=== PATIENT | female | born 1950 | race Caucasian/White ===

== ENCOUNTER 2020-01-01 10:45 | Outpatient (CLI) | payer MEDICARE, OTHER, SELFPAY ==
--- NOTE | ~2020-01-01 | MM_ITS ---
EXAMINATION: MM screening [facility] w june HISTORY: Screening. Left breast cancer. Status post previous chemotherapy and radiation therapy. TECHNIQUE: Craniocaudal and mediolateral oblique 3-D tomosynthesis images were obtained and synthetic 2-D images were generated. CAD analysis was submitted and interpreted. COMPARISON: Comparison to multiple prior studies sequentially, with oldest reviewed study dated 09/2014. BREAST PARENCHYMAL COMPOSITION: The breasts are heterogeneously dense, which may obscure small masses . FINDINGS: Stable architectural distortion of the left breast consistent with previous site of radiati on therapy. There is no evidence of suspicious mass, calcification, or architectural distortion to ramirez ggest malignancy in either breast. There has been no suspicious interval change. IMPRESSION: 1. No mammographic evidence of malignancy. 2. Recommend routine screening mammography in one year. BI-RADS Category 2: Benign finding(s). Reviewed, dictated and finalized at location A.
== END 2020-01-01 10:46 | disposition home or self-care (01) ==
LOC: ANHIMG 10:49
PROVIDERS: PCP Internal Medicine; Visit Provider Obstetrics & Gynecology
DX: Z12.31 Encounter for screening mammogram for malignant neoplasm of breast (principal)
CPT/HCPCS: 77063; 77067

== ENCOUNTER 2021-01-11 16:15 | Outpatient (CLI) | payer MEDICARE, SELFPAY ==
--- NOTE | ~2021-01-11 | DEXA_ITS ---
Bone Density Report Name: Gloria Ordonez Age: 70 Sex: Female Ethnicity: White Date of : 1950 Indication: osteopenia; monitoring treatment; height loss; cancer; Referring Provider: CORY MORENO Study: Bone densitometry was performed. Exam Date: January 11, 2021 Accession number: [id number] Bone Density: Region BMD T-score Z-score Classification AP Spine (L1-L4) 0.950 -0.9 1.3 Normal Femoral Neck (Left) 0.583 -2.4 -0.5 Osteopenia Total Hip (Left) 0.832 -0.9 0.7 Normal Total Hip Bilateral Avg 0.822 -1.0 0.6 Osteopenia Femoral Neck (Right) 0.597 -2.3 -0.4 Osteopenia Total Hip (Right) 0.810 -1.1 0.5 Osteopenia World Health Organization criteria for BMD impression classify patients as: Normal (T-score at or above -1.0), Osteopenia (T-score between -1.0 and -2.5), or Osteoporosis (T-score at or below -2.5). 10-year Fracture Risk: FRAX not reported because: Treated for osteoporosis Previous Exams: Region Exam Age BMD T-score BMD Change BMD Change Date g/cm2 vs Baseline vs Previous AP Spine(L1-L4) 01/11/2021 70 0.950 -0.9 0.010(1.0%)# 0.102(12.0%)* 03/06/2017 66 0.848 -1.8 -0.092(-9.8%)# -0.028(-3.1%)* 02/23/2015 64 0.876 -1.6 -0.065(-6.9%)# -0.010(-1.1%)# 02/20/2013 62 0.886 -1.5 -0.055(-5.8%)# -0.023(-2.5%)# 02/13/2011 60 0.908 -1.3 -0.032(-3.4%)* 0.054(6.3%)* 10/13/2009 59 0.855 -1.7 -0.085(-9.1%)* -0.053(-5.8%)* 10/28/2007 57 0.908 -1.3 -0.033(-3.5%)* -0.033(-3.5%)* 10/13/2005 55 0.940 -1.0 Total Hip(Left) 01/11/2021 70 0.832 -0.9 -0.015(-1.8%)# 0.073(9.6%)* 03/06/2017 66 0.759 -1.5 -0.088(-10.4%) -0.069(-8.3%)* 02/23/2015 64 0.828 -0.9 -0.019(-2.2%)# 0.062(8.0%)# 02/20/2013 62 0.767 -1.4 -0.080(-9.5%)# -0.110(-12.5%) 02/13/2011 60 0.877 -0.5 0.030(3.5%)* 0.089(11.3%)* 10/13/2009 59 0.788 -1.3 -0.059(-7.0%)* -0.040(-4.9%)* 10/28/2007 57 0.828 -0.9 -0.019(-2.2%) -0.019(-2.2%) 10/13/2005 55 0.847 -0.8 Total Hip(Right) 01/11/2021 70 0.810 -1.1 0.007(0.8%)# 0.063(8.4%)* 03/06/2017 66 0.747 -1.6 -0.056(-7.0%)# -0.038(-4.9%)* 02/23/2015 64 0.785 -1.3 -0.018(-2.3%)# -0.035(-4.3%)# 02/20/2013 62 0.820 -1.0 0.017(2.1%)# 0.004(0.4%)# 02/13/2011 60 0.817 -1.0 0.013(1.6%) 0.066(8.9%)* 10/13/2009 59 0.750 -1.6 -0.053(-6.7%)* -0.046(-5.8%)* 10/28/2007 57 0.796 -1.2 -0.007(-0.9%) -0.007(-0.9%) 10/13/2005 55 0.804 -1.1 *Denotes significance at 95% confidence level, LSC for AP Spine = 0.022 g/cm2
--- NOTE | ~2021-01-11 | MM_ITS ---
EXAMINATION: MM screening [facility] BI w june HISTORY: Screening TECHNIQUE: Craniocaudal and mediolateral oblique 3-D tomosynthesis images were obtained and synthetic 2-D images were generated. CAD analysis was submitted and interpreted. COMPARISON: Comparison to multiple prior studies sequentially, with oldest reviewed study dated 12/12. BREAST PARENCHYMAL COMPOSITION: The breasts are heterogenously dense, which may obscure small masses FINDINGS: Stable architectural distortion in the upper outer quadrant of the left breast, consistent with previous lumpectomy site. There are no new suspicious masses, calcification, or architectural di stortion to suggest malignancy in either breast. There has been no suspicious interval change. IMPRESSION: 1. No mammographic evidence of malignancy. 2. Recommend routine screening mammography in one year. BI-RADS Category 2: Benign finding(s). Reviewed, dictated and finalized at location A.
== END 2021-01-11 16:16 | disposition home or self-care (01) ==
PROVIDERS: PCP Internal Medicine; Visit Provider Obstetrics & Gynecology
DX: Z12.31 Encounter for screening mammogram for malignant neoplasm of breast (principal); Z78.0 Asymptomatic menopausal state; M85.852 Other specified disorders of bone density and structure, left thigh; M85.851 Other specified disorders of bone density and structure, right thigh
CPT/HCPCS: 77063; 77067; 77080

== ENCOUNTER 2021-02-10 10:30 | Outpatient (CLI) | payer MEDICARE, SELFPAY ==
[2021-02-10 11:39] LABS: Vitamin D 25 Hydroxy 37.1 ng/mL
== END 2021-02-10 10:31 | disposition home or self-care (01) ==
PROVIDERS: PCP Internal Medicine; Visit Provider Obstetrics & Gynecology
DX: M85.80 Other specified disorders of bone density and structure, unspecified site (principal)
CPT/HCPCS: 36415; 82306

== ENCOUNTER 2022-02-15 13:38 | Outpatient (CLI) | payer MEDICARE, SELFPAY ==
--- NOTE | ~2022-02-15 | MM_ITS ---
EXAMINATION: MM screening [facility] BI w june HISTORY: Screening TECHNIQUE: Craniocaudal and mediolateral oblique 3-D tomosynthesis images were obtained and synthetic 2-D images were generated. CAD analysis was submitted and interpreted. COMPARISON: Comparison to multiple prior studies sequentially, with oldest reviewed study dated 12/19. BREAST PARENCHYMAL COMPOSITION: The breasts are heterogeneously dense, which may obscure small masses . FINDINGS: There is architectural distortion and spiculation in the upper central aspect of the left b reast which is unchanged, consistent with previous lumpectomy site. There is no evidence of suspiciou s mass, calcification, or architectural distortion to suggest malignancy in either breast. There has been no suspicious interval change. IMPRESSION: 1. No mammographic evidence of malignancy. 2. Recommend routine screening mammography in one year. BI-RADS Category 2: Benign finding(s). Reviewed, dictated and finalized at location A.
== END 2022-02-15 13:39 | disposition home or self-care (01) ==
LOC: ANHIMG 13:41
PROVIDERS: PCP Internal Medicine; Visit Provider Obstetrics & Gynecology
DX: Z12.31 Encounter for screening mammogram for malignant neoplasm of breast (principal)
CPT/HCPCS: 77063; 77067

== ENCOUNTER 2023-05-29 07:54 | Outpatient (CLI) | payer MEDICARE, SELFPAY ==
--- NOTE | ~2023-05-29 | DEXA_ITS ---
Bone Density Report Name: YULISSA HERNDON Age: 72 Sex: Female Ethnicity: White Date of : 1950 Indication: osteopenia; height loss; cancer; Referring Provider: CORY MORENO Study: Bone densitometry was performed. Exam Date: May 29, 2023 Accession number: [id number] Bone Density: Region BMD T-score Z-score Classification AP Spine(L1-L4) 0.977 -0.6 1.7 Normal Femoral Neck (Left) 0.583 -2.4 -0.4 Osteopenia Total Hip (Left) 0.830 -0.9 0.8 Normal Femoral Neck (Right) 0.569 -2.5 -0.5 Osteoporosis Total Hip (Right) 0.799 -1.2 0.5 Osteopenia Total Hip Mean 0.815 -1.1 0.7 Osteopenia World Health Organization criteria for BMD impression classify patients as: Normal (T-score at or above -1.0), Osteopenia (T-score between -1.0 and -2.5), or Osteoporosis (T-score at or below -2.5). 10-year Fracture Risk: FRAX not reported because: Some T-score for Spine Total or Hip Total or Femoral Neck at or below -2.5 Previous Exams: Region Exam Age BMD T-score BMD Change BMD Change Date g/cm2 vs Baseline vs Previous AP Spine (L1-L4) 05/29/2023 72 0.977 -0.6 0.092 (10.3%)# 0.027 (2.9%)* 01/11/2021 70 0.950 -0.9 0.064 (7.2%)# 0.102 (12.0%)* 03/06/2017 66 0.848 -1.8 -0.038 (-4.2%) -0.028 (-3.1%) 02/23/2015 64 0.876 -1.6 -0.010 (-1.1%) -0.010 (-1.1%) 02/20/2013 62 0.886 -1.5 Total Hip(Left) 05/29/2023 72 0.830 -0.9 0.063 (8.2%)# -0.002 (-0.3%) 01/11/2021 70 0.832 -0.9 0.065 (8.5%)# 0.073 (9.6%)* 03/06/2017 66 0.759 -1.5 -0.008 (-1.0%) -0.069 (-8.3%) 02/23/2015 64 0.828 -0.9 0.062 (8.0%)# 0.062 (8.0%)# 02/20/2013 62 0.767 -1.4 Total Hip(Right) 05/29/2023 72 0.799 -1.2 -0.021 (-2.5%) -0.011 (-1.3%) 01/11/2021 70 0.810 -1.1 -0.010 (-1.2%) 0.063 (8.4%)* 03/06/2017 66 0.747 -1.6 -0.073 (-8.9%) -0.038 (-4.9%) 02/23/2015 64 0.785 -1.3 -0.035 (-4.3%) -0.035 (-4.3%) 02/20/2013 62 0.820 -1.0 *Denotes significance at 95% confidence level, LSC for AP Spine = 0.022 g/cm2, LSC for Total Hip = 0.027 g/cm2 # Denotes dissimilar scan types or analysis methods Clinical Information Provided by Patient: Has the following medical conditions: Cancer Patient maximum height was 63.5 Menopause Age: 49 Drinks caffeinated beverages Onset of menses at age 12 Number of children 3 Impression: The patient has osteoporosis, based on the Right Femoral Neck T-score. No significant bone loss was observed. Discussion: INCREASED RISK OF FRACTURE. BONE DENSITY IS
--- NOTE | ~2023-05-29 | MM_ITS ---
EXAMINATION: MM screening [facility] BI w june HISTORY: Screening TECHNIQUE: Craniocaudal and mediolateral oblique 3-D tomosynthesis images were obtained and synthetic 2-D images were generated. CAD analysis was submitted and interpreted. COMPARISON: Comparison to multiple prior studies sequentially, with oldest reviewed study dated 12/25. BREAST PARENCHYMAL COMPOSITION: The breasts are heterogeneously dense, which may obscure small masses . FINDINGS: Stable architectural distortion upper central aspect of the left breast, consistent with pr evious lumpectomy site. There is no evidence of suspicious mass, calcification, or architectural dist ortion to suggest malignancy in either breast. There has been no suspicious interval change. IMPRESSION: 1. No mammographic evidence of malignancy. 2. Recommend routine screening mammography in one year. BI-RADS Category 2: Benign finding(s). Reviewed, dictated and finalized at location A. [employer]
== END 2023-05-29 07:55 | disposition home or self-care (01) ==
PROVIDERS: PCP Internal Medicine; Visit Provider Obstetrics & Gynecology
DX: Z12.31 Encounter for screening mammogram for malignant neoplasm of breast (principal); M81.0 Age-related osteoporosis without current pathological fracture; Z78.0 Asymptomatic menopausal state
CPT/HCPCS: 77063; 77067; 77080

== ENCOUNTER 2024-05-30 07:47 | Outpatient (CLI) | payer MEDICARE, SELFPAY ==
--- NOTE | ~2024-05-30 | MM_ITS ---
EXAMINATION: MM screening [facility] BI w june HISTORY: Screening TECHNIQUE: Craniocaudal and mediolateral oblique 3-D tomosynthesis images were obtained and synthetic 2-D images were generated. CAD analysis was submitted and interpreted. COMPARISON: Comparison to multiple prior studies sequentially, with oldest reviewed study dated 10/2017. BREAST PARENCHYMAL COMPOSITION: Dense: The breasts are heterogeneously dense, which may obscure small masses FINDINGS: There is a stable architectural distortion in the left breast, consistent with previous lum pectomy and radiation therapy. There is stable skin thickening surrounding the nipple. There is no ev idence of suspicious mass, calcification, or architectural distortion to suggest malignancy in either breast. There has been no suspicious interval change. IMPRESSION: 1. No mammographic evidence of malignancy. 2. Recommend routine screening mammography in one year. BI-RADS Category 2: Benign finding(s). Reviewed, dictated and finalized at location A. [employer]ING [employer]
--- OUTSIDE RECORDS SUMMARY | 2024-05-30 07:53 | XMS_ITS | Encounter Summary ---
Author Organization [facility] Address [address] [place] [address] Phone Care Team Providers Care 3D Animator Name Role Phone Eduardo Del Valle MD Primary Care Provider [phone] Luis A Villegas MD Unavailable [phone] Reason for Visit * Reason Comments Medication Refill Encounter Details Date Type Department Care Team (Late st Contact Info) Description 07/20/[address] [facility] Medical Group - Family Medicine [facility] [address] [place] [address] Eduardo Del Valle MD [address] [address] Medication Refill Social History Tobacco Use Types Packs/Day Years Used Date Smoking Tobacco: Former Cigarettes 0.3 30 0 01/16/1955 - 01/16/1985 Smokeless Tobacco: Never Alcohol Use Standard Drinks/Week Comments Yes 1 (1 standard drink = 0.6 oz pur e alcohol) 1 drink per week PHQ-2 Answer Date Recorded Total Score - Questions 1-9 0 06/28 Education Answer Date Recorded What is the highest level of school you have completed or the highest degree you have received? 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 No / Unsure 07/22/2020 8:24 AM CDT documented as of this encounter Miscellaneous Notes * Telephone Encounter - Eduardo Del Valle MD - 07/20/2020 9:59 AM CDT Prescription approved. Please call in * Telephone Encounter - Rosy Lane RN - 07/20/2020 9:51 AM CDT Per nursing clinical judgement, provider to review and approve the medication(s) order(s) if appropriate. Requested Prescriptions Pending Prescriptions Disp Refills dicyclomine (BENTYL) 10 MG Capsule [Pharmacy Med Name: DICYCLOMINE 10 MG CAPSULE] 270 Capsule 1 Sig: TAKE 1 CAPSULE BY MOUTH THREE TIMES A DAY Gastroenterology: Antispasmodic Agents Passed - 07/20/2020 12:14 AM Passed - Valid encounter within last 12 months Past Office Visits Recent Outpatient Visits 2 months ago Abdominal cramps [facility] Eduardo Thomason MD 6 months ago Type 2 diabetes mellitus without complication, without long-term current use of insulin (HCC) [facility] Eduardo Thomason MD 7 months ago Low back pain, unspecified back pain laterality, unspecified chronicity, unspecified whether sciatica present [facility] Cherelle Murphy, ARACELI 1 year ago Type 2 diabetes mellitus without complication, without long-term current use of insulin (HCC) [facility] Eduardo Hernandez MD 1 year ago [facility] 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 07/15/19 Office Visit Eduardo Del Valle MD [facility] Showing recent visits within past 460 days with a meds authorizing provider and meeting all other requirements Future Appointments Date Type Provider Dept 07/22/20 Appointment Eduardo Del Valle MD [facility] [place] Showing future appointments within next 90 days with a meds authorizing provider and meeting all other requirements documented in this encounter Plan of Treatment Upcoming Encounters Date Type Department Care Team (Late st Contact Info) Description 07/24/2024 7:10 AM CDT Lab [facility] [address] [address] [facility] [place] Lab/Ancillary 07/31/2024 8:30 AM CDT Office Visit [facility] Medical Group - Family Medicine - [place] [address] [place] [address] Eduardo Del Valle MD [address] [place] [address] documented as of this encounter Visit Diagnoses Not on filedocumented in this encounter Additional Health Concerns Assessment Noted Time PHQ-9 Depression Total Score: 0 07/15/19 20 9:07 AM CDT documented as of this encounter Care Teams 3D Animator Relationship Specialty Start Date End Date Eduardo Del Valle MD [address] [place] [address] PCP - General Family Medicine 01/30/15 Luis A Villegas MD [address] [place] [address] Medical Oncologist Oncology 07/11/18 documented as of this encounter
--- OUTSIDE RECORDS SUMMARY | 2024-05-30 07:53 | XMS_ITS | Clinical Summary ---
Author Organization [facility] Address [address] [address] Phone Care Team Providers Care Motor Coach Operator Name Role Phone Eduardo Del Valle MD Primary Care Provider [phone] Luis A Villegas MD Unavailable Allergies Active Allergy Reactions Criticality Noted Date Comments Codeine Nausea 01/17/2016 Latex Itching,Hives High 11/04/2015 Bacitracin-Polymyxin B Rash 08/10/2023 Other-Environmental Allergen (Not Found In Search) Swelling Medium 06/12/2013 Penicillins Anaphylaxis,Unknown High 06/12/2013 Shellfish Allergy Swelling Tetanus Toxoids Swelling Tetracycline Hives 01/25/2022 Medications atorvastatin (LIPITOR) 10 MG Tablet Take 1 Tablet by mouth daily. 90 Tablet 3 4 Active metFORMIN (GLUCOPHAGE-XR) 500 MG TABLET SR 24 HR Take 1 Tablet by mouth daily. This RX is for Metformin SR. 90 Tablet 3 4 Active latanoprost (Xalatan) 0.005 % SolutionIndicat ions:Glaucoma Place 1 Drop in affected eye(s) nightly. 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 breast in female, estrogen receptor negative 07/18/2018 Pain of right scapula 03/25/2018 Age-related osteoporosis wit hout current pathological fracture 01/03/2018 Immunization, pneumococcus and influenza 017 NAFLD (nonalcoholic fatty liver disease) 017 Lower abdominal pain 03/10/2016 Colon cancer screening 11/04/2015 Hyperlipidemia 05/06/2015 Hyperglycemia 05/06/2015 Glaucoma Immunizations Immunization Administration Dates Next Due Covid-19, Mrna, Lnp-s, Pf, 3 0 Mcg/0.3 Ml Dose (Upstart) 03/01/2021,07/15/2020,06/24/2020 DTAP VACCINE 03/30/2007 Influenza Vaccine 01/18/2023 Influenza Vaccine greater than 3 yrs 01/18/2018, 01/23/2017,12/29/2014 Influenza Vaccine, Quadrivalent, PF 12/30,01/14/2021,01/15/2020,2018,01/18/2018,01/23/2017 Influenza, Seasonal, Injecta ble, Undefined 12/29/2014,12/29/2013 Influenza, high-dose, trivalent, PF 01/12/2016 Influenza,Split Virus,Trivalent,Injectable,PF 01/16/2024 PUR FLU HIGH DOSE (FLUZONE) 01/12/2016 Pneumococcal Vaccine - 13 Valent 11/11/2014 Pneumococcal Vaccine Adult - 23 Valent 11/07/2016,03/30/2006 RSV, Recombinant, Protein Snatana bunit Rsvpref, Adjuvant Recon (Arexvy) 03/20/2023 Zoster Vaccine, live 10/04/2011 Family History Medical History Relation Name Comments Lung Cancer Father Diabetes Mother Hypertension Mother Diabetes Sister Relation Name Status Comments Father Mother Alive Sister Social History Tobacco Use Types Packs/Day Years Used Date Smoking Tobacco: Former Cigarettes 0.3 30 0 01/16/1955 - 01/16/1985 Smokeless Tobacco: Never Tobacco Cessation:Counseling Given: No Alcohol Use Standard Drinks/Week Comments Yes 0 (1 standard drink = 0.6 oz pur e alcohol) occassional [facility] Utilities Answer Date Recorded In the past 12 months has [employer], oil, or water [employer] threatened to shut off services in your home? No 08/24/2023 Social Connection and Isolat ion Panel [NHANES] Answer Date Recorded In a typical week, how many times do you talk on the phone with family, friends, or neighbors? More than three times a week 08/24/2023 Frequency of Social Gatherin gs with Friends and Family Not on file 08/24/2023 Attends Rastafari Services Not on file 08/23 Active Member of Clubs or Organizations Not on f ile 08/24/2023 Attends Club or Organization Meetings Not on kevin e 08/24/2023 Marital Status Not on file 08/24/2023 AUDIT-C Answer Date Recorded Q1: How often do you have a drink containing alc ohol? Monthly or less 08/24/2023 Average Number of Drinks Not on file 024 Frequency of Binge Drinking Not on file 07/30 Overall Financial Resource Strain (CARDIA) Answe r Date Recorded How hard is it for you to pa y for the very basics like food, housing, medical care, and heating? Not hard at all 08/24/2023 PHQ-2 Answer Date Recorded Total Score - Questions 1-9 0 07/29 [facility] - Occupational Stress Questionnaire Answer Date Recorded Do you feel stress - tense, restless, nervous, or anxious, or unable to sleep at night because your mind is troubled all the time - these days? Not at all 08/24/2023 Exercise Vital Sign Answer Date Recorde d On average, how many days pe r week do you engage in moderate to strenuous exercise (like a brisk walk)? 4 days Minutes of Exercise per Session Not on file 08/24/2023 Hunger Vital Sign Answer Date Recorded Within the past 12 months, y ou worried that your food would run out before you got the money to buy more. Never true 08/24/19 24 Ran Out of Food in the Last Year Not on file 08/24/2023 PRAPARE - Transportation Answer Date Re corded In the past 12 months, has l ack of transportation kept you from medical appointments or from getting medications? No 08/24/2023 Lack of Transportation (Non-Medical) Not on file 08/24/2023 Housing Stability Vital Sign Answer Carter e Recorded In the last 12 months, was t here a time when you were not able to pay the mortgage or rent on time? No 08/24/2023 Number of Places Lived in the Last Year Not on f ile 08/24/2023 Unstable Housing in the Last Year Not on file 08/24/2023 Education Answer Date Recorded What is the [...] file Not on file Not on file Last Filed Vital Signs Vital Sign Reading Time Taken Comments Blood Pressure 128/70 01/23/2024 7:24 AM CDT Pulse 69 01/23/2024 7:24 AM CDT Temperature 36.1 ??C (97 ??F) 01/23/2024 7:24 AM CDT Respiratory Rate 16 01/23/2024 7:24 AM CDT Oxygen Saturation 99% 01/23/2024 7:24 AM CDT Inhaled Oxygen Concentration - - Weight 67.9 kg (149 lb 9.6 oz) 01/23/2024 7:24 A M CDT Height 160 cm (5' 3 ) 01/23/2024 7:24 AM CDT Body Mass Index 26.5 01/23/2024 7:24 AM CDT Plan of Treatment Upcoming Encounters Date Type Department Care Team (Late st Contact Info) Description 07/24/2024 7:10 AM CDT Lab [facility] [address] [address] Kylie Singh Lab/Ancillary 07/31/2024 8:30 AM CDT Office Visit [facility] - [place] [address] [place] [address] Eduardo Del Valle MD [address] [address] Health Maintenance Due Date Last Done Comments Hepatitis C Virus (HCV) Screening 1950 Cologuard 09/03/1999 Immunochemical Fecal Occult Blood 09/03/1999 Zoster Immunization (1 of 2) 11/29/2011 10/04/2011 Mammogram 01/11/2022 01/11/2021, 09/0 06/2019, 12/27/2018, Additional history exists DEXA Bone Density 01/11/2023 01/11/2021, , 03/06/2017 Diabetes: Foot Exam 07/26/2023 07/25/2022 SARS-COV-2 Immunization ( season) 2023 02/06/2023, 02/20/2022, 03/01/2021, Additional history exists Diabetes: Hemoglobin A1c 07/15/2024 024, 08/02/2023, 01/25/2023, Additional history exists Diabetes: Eye Exam 10/09/2024 10/10/2023 Diabetes: Nephropathy Screening 01/15/2025 01/16/2024, 01/16/2024, 08/02/2023, Additional history exists Colonoscopy 09/07/2025 09/07/2020, 12/29, 01/24/2011 Colorectal Cancer Screening 09/07/2025 09/07/2020, 12/29, 01/24/2011 DTaP/Tdap/Td Immunization Discontinued 03/30/2007 Pneumococcal Immunization (50+ years) Completed 11/07/2016, 11/11/2014, 03/30/2006 Pneumococcal Immunization Combined Discontinued 11/07/2016, 11/11/2014, 03/30/2006 Respiratory Syncytial Virus (RSV) Immunization (Adult) Completed 03/20/2023 Influenza Immunization Completed , 01/18/2023, 01/25/2022, Additional history exists Hepatitis B Immunization Aged Out No longer eligible based on patient's age to complete this topic Meningococcal Immunization (ACWY) Aged Out No longer eligible based on patient's age to complete this topic Rotavirus Immunization Aged Out No lo nger eligible based on patient's age to complete this topic Procedures Procedure Name Priority Date/Time Associated Diagnosis Comments CMP (COMPREHENSIVE METABOLIC PANEL) Routine 01/16/2024 7:09 AM CDT Type 2 diabetes mellitus without complication, without long-term current use of insulin (HCC) Pure hypercholesterolemia HEMOGLOBIN A1C W/ ESTIMATED GLUCOSE Routine 01/16/2024 7:09 AM CDT Type 2 diabetes mellitus without complication, without long-term current use of insulin (HCC) Pure hypercholesterolemia BONE DENSITY GENERIC 01/11/2021 12:00 AM CDT MAMMOGRAM BILATERAL GENERIC 01/11/2021 12:00 AM CDT HM COLONOSCOPY Routine 01/24/2011 from Last 3 Months or Most Recently Relevant to Health Maintenance Results * (ABNORMAL) HEMOGLOBIN A1C W/ ESTIMATED GLUCOSE (01/16/2024 7:09 AM CDT) HGB-A1C 7.3(H) 4.0 - 6.0 % 01/16/2024 9:00 AM CDT [facility] Est Average Glucose 162.8 mg/dL 01/16/2024 9:00 AM CDT [facility] Blood Venipuncture / Unknown 01/16/2024 7:09 AM CDT 01/16/2024 8:02 AM CDT Narrative [facility] - 01/16/2024 9:00 AM CDT HEMOGLOBIN A1C: DIABETIC PATIENTS: WELL-CONTROLLED: ?? 6.2 - 7.0 INTERMEDIATE WELL-CONTROLLED: ??7.0 - 9.0 POORLY-CONTROLLED: ??>9.0 us Eduardo Del Valle MD CHEMISTRY ORDERABLES Final Re sult [facility] [address] [place] [address] * (ABNORMAL) CMP (COMPREHENSIVE METABOLIC PANEL) (01/16/2024 7:09 AM CDT) SODIUM 141 136 - 145 mmol/L 01/16/2024 8:45 AM CDT [facility] POTASSIUM 4.0 3.5 - 5.1 mmol/L 01/16/2024 8:45 AM CDT [facility] CHLORIDE 106 98 - 107 mmol/L 01/16/2024 8:45 AM T [facility] CO2, VENOUS 28 22 - 30 mmol/L 01/16/2024 8:45 AM T [facility] ANION GAP 11.0 <18.0 mmol/L 01/16/2024 8:45 AM T [facility] GLUCOSE 166(H) 70 - 99 mg/dL 01/16/2024 8:45 AM CDT [facility] BUN 15 10 - 20 mg/dL 01/16/2024 8:45 AM [facility] CREATININE, BLOOD 0.69 0.60 - 1.00 mg/dL 01/16/2024 8:45 AM T [facility] BUN/CREATININE RATIO 22(H) 12 - 20 ratio 01/16/2024 8:45 AM T [facility] TOTAL PROTEIN 6.8 6.3 - 8.2 g/dL 01/16/2024 8:45 AM [facility] ALBUMIN 4.2 3.5 - 5.0 g/dL 01/16/2024 8:45 AM [facility] A/G RATIO 1.6 1.0 - 2.2 01/16/2024 8:45 AM [facility] CALCIUM 9.3 8.7 - 10.5 mg/dL 01/16/2024 8:45 AM [facility] T BILI 0.5 0.2 - 1.2 mg/dL 01/16/2024 8:45 AM T [facility] SGOT (AST) 15 5 - 34 U/L 01/16/2024 8:45 AM [facility] SGPT (ALT) 21 0 - 55 U/L 01/16/2024 8:45 AM [facility] ALKALINE PHOSPHATASE 123 40 - 150 U/L 01/16/2024 8:45 AM T [facility] IS THE PATIENT REQUIRED TO BE FASTING? No 01/16/2024 8:45 AM CDT [facility] GFR, ESTIMATED >60 >=60 01/16/2024 8:45 AM CDT [facility] Comment: Creatinine Clearance is the preferred criteria for selecting drug dose adjustments in renally impaired patients. ??The GFR is provided as additional pertinent clinical information. GFR is reported in mL/min/1.73 sq m. Calculation based on the Chronic Kidney Disease Epidemiology Collaboration (CKD- EPI) equation refit without adjustment for race. GFR, EST. >60 >=60 024 8:45 AM CDT [facility] GFR, EST. NONAFRICAN >60 >=60 01/16/2024 8:45 AM CDT [facility] Blood Venipuncture / Unknown 01/16/2024 7:09 AM CDT 01/16/2024 8:01 AM CDT Eduardo Del Valle MD CHEMISTRY ORDERABLES Final Re sult Performing Organization Address [facility] Co de Phone Number [facility] [address] [place] [address] * BONE DENSITY GENERIC SCAN (01/11/2021 12:00 AM CDT) 01/11/2021 us Not On File Provider IMG DEXA ORDERABLES Final R esult Performing Organization Address [facility]/ZIP Co de Phone Number SCAN * MAMMOGRAM BILATERAL MISCELLANEOUS (01/11/2021 12:00 AM CDT) 01/11/2021 us Not On File Provider IMG MAMMO ORDERABLES Final Result Performing Organization Address City/[facility]/ZIP Co de Phone Number SCAN * HM COLONOSCOPY (01/24/2011) us Eduardo Del Valle MD PROCEDURE/MINOR SURGICAL RACH WAN Edited Result - Final from Last 3 Months or Most Recently Relevant to Health Maintenance Insurance MEDICARE [employer] GENERIC Care Teams Motor Coach Operator Relationship Specialty Start Date End Date Eduardo Del Valle MD [address] [address] PCP - General Family Medicine 01/30/15 Luis A Villegas MD [address] [address] Medical Oncologist Oncology 07/11/18
== END 2024-05-30 07:48 | disposition home or self-care (01) ==
LOC: ANHIMG 07:50
PROVIDERS: PCP Internal Medicine; Visit Provider Obstetrics & Gynecology
DX: Z12.31 Encounter for screening mammogram for malignant neoplasm of breast (principal)
CPT/HCPCS: 77063; 77067